=== PATIENT | female | born 2000 | race Two or more races ===

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

== ENCOUNTER 2020-03-02 15:34 | Emergency (ER) | payer OTHER ==
[2020-03-02 16:27] LABS: ABSOLUTE BASOPHILS # (AUTO) 0.1 10^3/uL (0.0-0.2); ABSOLUTE EOSINOPHILS # (AUTO) 0.6 10^3/uL (0.0-0.6); ABSOLUTE LYMPHOCYTES (AUTO) 1.9 10^3/uL (0.5-4.7); ABSOLUTE MONOCYTES (AUTO) 0.3 10^3/uL (0.1-1.4); ABSOLUTE NEUT (AUTO) 5.8 10^3/uL (1.7-8.2); BASOPHILS % (AUTO) 0.7 % (0-2); EOSINOPHILS % (AUTO) 6.8 % (0-6); HEMOGLOBIN 13.9 g/dL (12.0-15.5); LYMPHOCYTES % (AUTO) 21.9 % (13-45); MEAN CORPUSCULAR HEMOGLOBIN 30.2 pg (27.0-33.4); MEAN CORPUSCULAR HGB CONC 34.8 g/dL (32.0-36.0); MEAN CORPUSCULAR VOLUME 87 fl (80-97); PLATELET COUNT 183 10^3/uL (150-450); RED BLOOD COUNT 4.61 10^6/uL (3.72-5.28); RED CELL DISTRIBUTION WIDTH 12.7 % (11.5-14.0); SEGMENTED NEUTROPHILS % (AUTO) 66.6 % (42-78); TOTAL CELLS COUNTED % (AUTO) 100 %; WHITE BLOOD COUNT 8.7 10^3/uL (4.0-10.5)
[2020-03-02 16:51] LABS: ALBUMIN 4.2 g/dL (3.7-5.6); ALKALINE PHOSPHATASE 56 U/L (50-135); ANION GAP 8 (5-19); ASPARTATE AMINO TRANSFERASE 18 U/L (5-30); BILIRUBIN,TOTAL 0.4 mg/dL (0.2-1.3); BLOOD UREA NITROGEN 12 mg/dL (7-20); CALCIUM 9.4 mg/dL (8.4-10.2); CARBON DIOXIDE 24 mmol/L (22-30); CHLORIDE 104 mmol/L (98-107); GLUCOSE 87 mg/dL (75-110); POTASSIUM 4.2 mmol/L (3.6-5.0); TOTAL PROTEIN 6.8 g/dL (6.3-8.2)
--- NOTE | 2020-03-02 17:33 | ER Document Report ---
HPI - HPI Time Seen by Provider: 03/02/20 15:53 Pain Level: 0 Notes: Otherwise healthy 19-year-old female G1, P0 presenting to the emergency department with vaginal bleeding in the setting of early . Patient reports she has found she was last week. She states her last menstrual period was on 01/09/2020. She reports vaginal bleeding started earlier today, and she has soaked through 1 pad in about 5 hours. Denies passage of any clots or tissue. - REPRODUCTIVE Reproductive: REPORTS: : Past Medical History - General Information source: Patient - Social History Smoking Status: Never Smoker Chew tobacco use (# tins/day): No Frequency of alcohol use: None Drug Abuse: None Family History: Reviewed & Not Pertinent Patient has suicidal ideation: No Patient has homicidal ideation: No Pulmonary Medical History: Reports: Hx Asthma Vertical Provider Document - CONSTITUTIONAL Notes: PHYSICAL EXAMINATION: GENERAL: Well-appearing, well-nourished and in no acute distress. HEAD: Atraumatic, normocephalic. EYES: Pupils equal round and reactive to light, extraocular movements intact, conjunctiva are normal. ENT: Nares patent, oropharynx clear without exudates. Moist mucous membranes. NECK: Normal range of motion, supple without lymphadenopathy LUNGS: Breath sounds clear to auscultation bilaterally and equal. No wheezes rales or rhonchi. HEART: Regular rate and rhythm without murmurs ABDOMEN: Soft, nontender, nondistended abdomen. No guarding, no rebound. No masses appreciated. Female : deferred Musculoskeletal: Normal range of motion, no pitting or edema. No cyanosis. NEUROLOGICAL: Cranial nerves grossly intact. Normal speech, normal gait. Normal sensory, motor exams PSYCH: Normal mood, normal affect. SKIN: Warm, Dry, normal turgor, no rashes or lesions noted. - INFECTION CONTROL TRAVEL OUTSIDE OF THE [place] IN LAST 30 DAYS: No Course - Re-evaluation Re-evalutation: 03/02/20 20:59 Laboratory 03/02/20 03/02/20 03/02/20 16:20 16:20 16:20 WBC 8.7 RBC 4.61 Hgb 13.9 Hct 40.0 MCV 87 MCH 30.2 MCHC 34.8 RDW 12.7 Plt Count 183 Lymph % (Auto) 21.9 Ingham % (Auto) 4.0 Eos % (Auto) 6.8 H Baso % (Auto) 0.7 Absolute Neuts (auto) 5.8 Absolute Lymphs (auto) 1.9 Absolute Monos (auto) 0.3 Absolute Eos (auto) 0.6 Absolute Basos (auto) 0.1 Seg Neutrophils % 66.6 Sodium 135.5 L Potassium 4.2 Chloride 104 Carbon Dioxide 24 Anion Gap 8 BUN 12 Creatinine 0.49 L Est GFR ( Amer) > 60 Est GFR (MDRD) Non-Af > 60 Glucose 87 Calcium 9.4 Total Bilirubin 0.4 Direct Bilirubin 0.0 Neonat Total Bilirubin Not Reportable Neonat Direct Bilirubin Not Reportable Neonat Indirect Bili Not Reportable AST 18 ALT 24 Alkaline Phosphatase 56 Total Protein 6.8 Albumin 4.2 Serum HCG, Qual POSITIVE H Beta HCG, Quant Total Beta HCG Blood Type Rhogam Indicated 03/02/20 03/02/20 16:20 16:57 WBC RBC Hgb Hct MCV MCH MCHC RDW Plt Count Lymph % (Auto) Ingham % (Auto) Eos % (Auto) Baso % (Auto) Absolute Neuts (auto) Absolute Lymphs (auto) Absolute Monos (auto) Absolute Eos (auto) Absolute Basos (auto) Seg Neutrophils % Sodium Potassium Chloride Carbon Dioxide Anion Gap BUN Creatinine Est GFR ( Amer) Est GFR (MDRD) Non-Af Glucose Calcium Total Bilirubin Direct Bilirubin Neonat Total Bilirubin Neonat Direct Bilirubin Neonat Indirect Bili AST ALT Alkaline Phosphatase Total Protein Albumin Serum HCG, Qual Beta HCG, Quant 91133.00 H Total Beta HCG POSITIVE Blood Type A POSITIVE Rhogam Indicated RHOGAM NOT INDICATED Obstetrics Ultrasound 03/02/20 17:32 IMPRESSION: Single intrauterine gestational sac, as above described. By mean sac diameter, this measures 6 weeks and 2 days. A questionable pole is identified though no obvious heart tones are identified, possibly due to the small size of the pole. Recommend serial beta-hCG surveillance and follow-up pelvic ultrasound in 1 week to assess for heart tones. Suspect subchorionic hematoma measuring 1.2 x 0.8 x 1.3 cm in size. copyright 2010 [employer]- All Rights Reserved Patient instructed to return to the emergency department or follow-up with [facility] for repeat quantitative hCG levels as well as repeat ultrasound. Patient very tearful and upset with the possibility of miscarriage. Patient will be discharged home with her . - Vital Signs Vital signs: Temp Pulse Resp BP Pulse Ox 98.7 F 86 16 110/71 100 03/02/20 15:48 03/02/20 15:35 03/02/20 15:35 03/02/20 15:35 03/02/20 15:35 - Laboratory Result Diagrams: 03/02/20 16:20 03/02/20 16:20 Laboratory results interpreted by me: 03/02/20 03/02/20 03/02/20 16:20 16:20 16:20 Eos % (Auto) 6.8 H Sodium 135.5 L Creatinine 0.49 L Serum HCG, Qual POSITIVE H Beta HCG, Quant 03/02/20 16:20 Eos % (Auto) Sodium Creatinine Serum HCG, Qual Beta HCG, Quant 17883.00 H Discharge - Discharge Clinical Impression: Vaginal bleeding during Condition: Stable Disposition: HOME, SELF-CARE Additional Instructions: Threatened Miscarriage You have been evaluated for a possible miscarriage. At this time, there is no indication that a miscarriage will occur. Most women with your symptoms will go on to have a perfectly normal baby. However, careful observation will be necessary. A miscarriage occurs when the fetus is abnormal. There is no medicine or treatment for it. You should rest in bed until the symptoms have resolved. Do not douche or have sex for at least a week, or until OK'd by the doctor. Call the doctor or return for re-examination if there is an increase in bleeding or cramping, or passage of tissue. Your ultrasound today showed a sac in the uterus but did not show any obvious heart tones. This is possibly due to your very early or a could indicate miscarriage. It is very important to have your blood re-drawn and have a repeat ultrasound in 3 to 5 days. I have given you the phone number for [facility], call them to make an appointment. If you are unable to follow-up with them please return to the emergency department and we will be happy to repeat your ultrasound and lab work. Referrals: [facility] [Provider Group] - Follow up as needed
--- NOTE | 2020-03-02 20:26 | RADIOLOGY REPORT (SQ) ---
EXAM DESCRIPTION: US TRANSVAGINAL COMPLETED DATE/TME: 03/02/2020 17:32 CLINICAL HISTORY: 19 years, Female, vag bleed, + COMPARISON: None. TECHNIQUE: Axial 2-D grayscale images of the pelvis were acquired. Doppler was utilized. LIMITATIONS: None. FINDINGS: Uterus measures 8.1 x 3.6 x 7.2 cm in size. A suspected intrauterine gestational sac is identified measuring 1.36 cm in average diameter for an estimated gestational age of 6 weeks and 2 days. A yolk sac is identified measuring 0.22 cm in width. A questionable pole is identified (0.15 cm) though no obvious heart tones are clearly delineated. The cervix is closed, measuring 3.4 cm in length. An area of hypoechogenicity is noted about the inferior aspect of the gestational sac measuring 1.2 x 0.8 x 1.3 cm in size. Right ovary measures 5.4 x 4.3 x 3.6 cm in size. It contains an anechoic lesion measuring 2.3 x 2.5 x 2.5 cm in size, corresponding to a simple ovarian cyst. Otherwise, the right ovary demonstrates normal Doppler flow. Left ovary measures 2.1 x 1.3 x 2.6 cm in size. It also demonstrates Doppler flow. No significant free fluid is identified within the imaged pelvis. IMPRESSION: Single intrauterine gestational sac, as above described. By mean sac diameter, this measures 6 weeks and 2 days. A questionable pole is identified though no obvious heart tones are identified, possibly due to the small size of the pole. Recommend serial beta-hCG surveillance and follow-up pelvic ultrasound in 1 week to assess for heart tones. Suspect subchorionic hematoma measuring 1.2 x 0.8 x 1.3 cm in size. copyright 2010 [employer] All Rights Reserved
[2020-03-02 20:52] VITALS: BP 102/53
== END 2020-03-02 20:59 | disposition home or self-care (01) ==
LOC: ER 15:34
DX: O20.9 Hemorrhage in early pregnancy, unspecified (principal); O99.511 Diseases of the respiratory system complicating pregnancy, first trimester; J45.909 Unspecified asthma, uncomplicated; Z3A.01 Less than 8 weeks gestation of pregnancy
CPT/HCPCS: 36415; 76817; 80053; 84702; 84703; 85025; 86900; 86901; 99284

== ENCOUNTER 2020-03-05 09:48 | Emergency (ER) | payer OTHER ==
--- NOTE | 2020-03-05 10:37 | ER Document Report ---
Entered by SERA GIRALDO SCRIBE 03/05/20 1014 Acting as scribe for:EDLMA CARPENTER MD ED GI/ - General Chief Complaint: Vag Bleeding, +preg <12wks Stated Complaint: VAGINAL BLEEDING Time Seen by Provider: 03/05/20 10:09 Primary Care Provider: [facility] [Provider Group] - Follow up in 3-5 days MAGDIEL GAY PA-C [Primary Care Provider] - Follow up as needed Mode of Arrival: Ambulatory Information source: Patient Notes: This 19 year old female patient presents to the emergency department today for a repeat ultrasound and blood work as a follow up from her previous visit to this ED x3 days ago. Patients LMP was 01/09/2020 and she has been having vaginal bleeding and she was diagnosed with a subchorionic hematoma here on ultrasound x3 days ago. Patient states she hasn't had any more bleeding but she has noticed a small amount of brown discharge. Patient denies any cramping. On 03/02/2020, patient's ultrasound showed a 6-week 2-day gestational sac without pole and no heartbeat seen. There was a small subchorionic bleed. hCG level was 35,892. Today the ultrasound shows a 5-week 6-day intrauterine pre gnancy with a heart rate of 95. hCG level 64,180. TRAVEL OUTSIDE OF THE [place] IN LAST 30 DAYS: No - Related Data Allergies/Adverse Reactions: No Known Allergies Allergy (Unverified 08/13/19 21:37) Past Medical History - General Information source: Patient Last Menstrual Period: 01/09/2020 - Social History Smoking Status: Never Smoker Cigarette use (# per day): No Frequency of alcohol use: None Drug Abuse: None Lives with: Family Family History: Reviewed & Not Pertinent Pulmonary Medical History: Reports: Hx Asthma Surgical Hx: Negative Review of Systems - Review of Systems Constitutional: No symptoms reported EENT: No symptoms reported Cardiovascular: No symptoms reported Respiratory: No symptoms reported Gastrointestinal: No symptoms reported Genitourinary: No symptoms reported Female Genitourinary: See HPI, , Vaginal bleeding Musculoskeletal: No symptoms reported Skin: No symptoms reported Hematologic/Lymphatic: No symptoms reported Neurological/Psychological: No symptoms reported -: Yes All other systems reviewed and negative Physical Exam - Vital signs Vitals: Temp 98.1 F 03/05/20 09:54 Interpretation: Normal - General General appearance: Appears well, Alert - HEENT Head: Normocephalic, Atraumatic Eyes: Normal Pupils: PERRL - Respiratory Respiratory status: No respiratory distress Chest status: Nontender Breath sounds: Normal Chest palpation: Normal - Cardiovascular Rhythm: Regular Heart sounds: Normal auscultation Murmur: No - Abdominal Inspection: Normal Distension: No distension Bowel sounds: Normal Tenderness: Nontender Organomegaly: No organomegaly - Back Back: Normal, Nontender - Extremities General upper extremity: Normal inspection, Nontender, Normal ROM General lower extremity: Normal inspection, Nontender, Normal ROM - Neurological Neuro grossly intact: Yes Cognition: Normal Orientation: AAOx4 Whitefield Coma Scale Eye Opening: Spontaneous Henry Coma Scale Verbal: Oriented Henry Coma Scale Motor: Obeys Commands Henry Coma Scale Total: 15 Speech: Normal Motor strength normal: LUE, RUE, LLE, RLE Sensory: Normal - Psychological Associated symptoms: Normal affect, Normal mood - Skin Skin Temperature: Warm Skin Moisture: Dry Skin Color: Normal Course - Vital Signs Vital signs: Temp Pulse Resp BP Pulse Ox 98.7 F 82 16 107/68 96 03/05/20 12:02 03/05/20 12:02 03/05/20 12:02 03/05/20 12:02 03/05/20 12:02 - Laboratory Laboratory results interpreted by me: 03/05/20 10:05 Beta HCG, Quant 75358.00 H Discharge - Discharge Clinical Impression: Viable in first trimester Condition: Stable Disposition: HOME, SELF-CARE Additional Instructions: Your hormone level today has gone up to 64,180, your ultrasound shows a viable intrauterine measuring 5 weeks 6 days with a heart rate of 95. You should continue to drink plenty of fluids, pelvic rest, follow-up with [facility] next week for recheck. RETURN TO THE EMERGENCY ROOM IF ANY NEW OR WORSENING SYMPTOMS. Referrals: MAGDIEL GAY PA-C [Primary Care Provider] - Follow up as needed [facility] [Provider Group] - Follow up in 3-5 days I personally performed the services described in the documentation, reviewed and edited the documentation which was dictated to the scribe in my presence, and it accurately records my words and actions.
--- NOTE | 2020-03-05 11:36 | RADIOLOGY REPORT (SQ) ---
EXAM DESCRIPTION: U/S OB TRANSVAGINAL W/O DOP IMAGES COMPLETED DATE/TIME: 03/05/2020 11:16 am REASON FOR STUDY: 6wk vag bleed, F/U COMPARISON: None. TECHNIQUE: Transvaginal static and realtime grayscale images acquired of the pelvis. Additional tomy cted spectral and color Doppler images recorded. All images stored on PACs. bHCG: Pending. CLINICAL DATES: 8 weeks 0 days LIMITATIONS: None. FINDINGS: FETUS: Single Living intrauterine . ULTRASOUND EGA: 5 weeks 6 days ULTRASOUND MARIIA: 10/30/2020 EFW: Not applicable less than 20 weeks. CRL: 3 mm FHR: 95 beats per minute. SURVEY: No visualized anomalies. AMNIOTIC FLUID: Adequate amount. PLACENTA: Not yet developed due to early gestation. SUBCHORIONIC BLEED: No. SIZE OF BLEED: Not applicable. UTERUS: No masses. No anomalies. CERVICAL LENGTH: 3.3 cm. Closed. RIGHT ADNEXA: Normal ovary with normal vascular flow. No adnexal free fluid. Corpus Luteum measuring 3.0 cm. LEFT ADNEXA: Ovary not identified due to poor acoustical window. No adnexal free fluid. No adnexal masses. FREE FLUID: None. OTHER: No other significant finding. IMPRESSION: LIVING INTRAUTERINE . EGA 5 weeks 6 days. Trimester of : First trimester - 0 to 13 weeks. TECHNICAL DOCUMENTATION: JOB ID: [id number] 2010 [employer]- All Rights Reserved rev Reading location - IP/workstation name: [email or web address]
[2020-03-05 12:05] VITALS: BP 107/68
== END 2020-03-05 12:05 | disposition home or self-care (01) ==
LOC: ER 09:48
DX: O20.9 Hemorrhage in early pregnancy, unspecified (principal); Z3A.01 Less than 8 weeks gestation of pregnancy
CPT/HCPCS: 36415; 76817; 84702; 99284

== ENCOUNTER 2020-04-26 16:45 | Emergency (ER) | payer OTHER ==
[2020-04-26] MEDS ORDERED: MORPHINE SULFATE 10 MG/ML INJ IM ONE (16:54)
--- NOTE | 2020-04-26 16:57 | ER Document Report ---
ED Medical Screen (RME) - General Chief Complaint: Vaginal Bleeding Stated Complaint: POSSIBLE MISCARRIAGE Time Seen by Provider: 04/26/20 16:48 Primary Care Provider: MAGDIEL GAY PA-C [Primary Care Provider] - Follow up as needed Notes: Patient is a G1, P0-year-old female who presents emergency department for abdominal pain and cramping. Patient had a confirmed via ultrasound by her AUTOMOTIVE SALES REPRESENTATIVE. Patient's last menstrual cycle was 01/09/2020. Patient was given indomethacin, but has not taken it. She states that she feels like she is having contractions. She took Percocet prior to coming to the emergency department, but still continues to have cramping and pain. Exam: Appears she is having pain from contractions. I have greeted and performed a rapid initial assessment of this patient. A comprehensive ED assessment and evaluation of the patient, analysis of test results and completion of medical decision making process will be conducted by an additional ED providers. TRAVEL OUTSIDE OF THE [place] IN LAST 30 DAYS: No - Related Data Allergies/Adverse Reactions: No Known Allergies Allergy (Unverified 08/13/19 21:37) Home Medications: percocet. cytotec Past Medical History Pulmonary Medical History: Reports: Hx Asthma Physical Exam - Vital signs Vitals: Temp Pulse Resp BP Pulse Ox 97.5 F 92 20 101/59 L 97 04/26/20 16:50 04/26/20 16:50 04/26/20 16:50 04/26/20 16:50 04/26/20 16:50 Course - Vital Signs Vital signs: Temp Pulse Resp BP Pulse Ox 97.5 F 92 20 101/59 L 97 04/26/20 16:52 04/26/20 16:50 04/26/20 16:50 04/26/20 16:50 04/26/20 16:50 Doctor's Discharge - Discharge Referrals: MAGDIEL GAY PA-C [Primary Care Provider] - Follow up as needed
[2020-04-26 17:22] LABS: ABSOLUTE BASOPHILS # (AUTO) 0.1 10^3/uL (0.0-0.2); ABSOLUTE EOSINOPHILS # (AUTO) 0.5 10^3/uL (0.0-0.6); ABSOLUTE LYMPHOCYTES (AUTO) 2.7 10^3/uL (0.5-4.7); ABSOLUTE MONOCYTES (AUTO) 0.6 10^3/uL (0.1-1.4); ABSOLUTE NEUT (AUTO) 7.7 10^3/uL (1.7-8.2); EOSINOPHILS % (AUTO) 4.3 % (0-6); HEMATOCRIT 38.2 % (36.0-47.0); HEMOGLOBIN 13.2 g/dL (12.0-15.5); MEAN CORPUSCULAR HEMOGLOBIN 29.7 pg (27.0-33.4); MEAN CORPUSCULAR HGB CONC 34.5 g/dL (32.0-36.0); MEAN CORPUSCULAR VOLUME 86 fl (80-97); MONOCYTES % (AUTO) 5.2 % (3-13); PLATELET COUNT 168 10^3/uL (150-450); RED BLOOD COUNT 4.45 10^6/uL (3.72-5.28); RED CELL DISTRIBUTION WIDTH 12.9 % (11.5-14.0); SEGMENTED NEUTROPHILS % (AUTO) 66.5 % (42-78); TOTAL CELLS COUNTED % (AUTO) 100 %; WHITE BLOOD COUNT 11.7 10^3/uL (4.0-10.5)
[2020-04-26] MEDS ORDERED: ONDANSETRON 4 MG TAB.RAPDIS PO ONE (18:00)
--- NOTE | 2020-04-26 22:11 | ER Document Report ---
ED General - General Chief Complaint: Vaginal Bleeding Stated Complaint: POSSIBLE MISCARRIAGE Time Seen by Provider: 04/26/20 16:48 Primary Care Provider: MAGDIEL GAY PA-C [Primary Care Provider] - Follow up as needed Notes: 20-year-old female who is a G1, P0 approximately 12 weeks by gestation presents the emergency department actively miscarrying. Patient started having some vaginal bleeding last night, saw [facility] today where they confirmed that the heartbeat had stopped. Patient was given Cytotec which she was told to start taking this evening however before she could start taking it her bleeding got heavier, her pain increased and then she passed what she thinks may have been the fetus in the waiting room of the emergency department. Patient now states that her bleeding has slowed down significantly, states that she is no longer having any significant pain. Would like to take the tissue at home to bury at home. Patient is A+. TRAVEL OUTSIDE OF THE [place] IN LAST 30 DAYS: No - Related Data Allergies/Adverse Reactions: No Known Allergies Allergy (Unverified 08/13/19 21:37) Home Medications: percocet. cytotec Past Medical History - General Information source: Patient - Social History Smoking Status: Never Smoker Family History: Reviewed & Not Pertinent Patient has homicidal ideation: No Pulmonary Medical History: Reports: Hx Asthma Review of Systems - Review of Systems Constitutional: No symptoms reported Female Genitourinary: See HPI -: Yes All other systems reviewed and negative Physical Exam - Vital signs Vitals: Temp Pulse Resp BP Pulse Ox 97.5 F 92 20 101/59 L 97 04/26/20 16:50 04/26/20 16:50 04/26/20 16:50 04/26/20 16:50 04/26/20 16:50 Interpretation: Normal - Notes Notes: GENERAL: Alert, interacts well. No acute distress. HEAD: Normocephalic, atraumatic EYES: Pupils equal, round and reactive to light, extraocular movements intact. ENT: Oral mucosa moist, tongue midline. NECK: Full range of motion, supple, trachea midline. LUNGS: Clear to auscultation bilaterally, no wheezes, rales or rhonchi, no respiratory distress. HEART: Regular rate and rhythm, no murmurs, gallops, rubs. ABDOMEN: Soft, nontender, nondistended, bowel sounds present in all 4 quadrants. EXTREMITIES: Moves all 4 extremities spontaneously, no edema, radial and dorsalis pedis pulses 2/4 bilaterally. No cyanosis. NEUROLOGICAL: Alert and oriented x3, normal speech. PSYCH: Normal mood, normal affect. SKIN: Warm, Dry, normal turgor, no rashes or lesions noted. Course - Re-evaluation Re-evalutation: 04/26/20 22:19 CBC shows mild leukocytosis, no anemia, her quant is still detectable at 1026.4. She has had old blood typing which shows that she has a positive. Patient has passed what appears to be all of the products of conception in a bag at the bedside. Patient would like to take him home, discussed case with Dr. Lindsey the SPOOL MAKER on-call, agrees that as this is her first miscarriage there is no real benefit to sending it for genetic testing. Patient will be allowed to take the products of conception home. No need for Cytotec at this time as she has already passed everything. Patient was given strict return precautions and will be discharged home. - Vital Signs Vital signs: Temp Pulse Resp BP Pulse Ox 97.5 F 92 20 101/59 L 97 04/26/20 16:52 04/26/20 16:50 04/26/20 16:50 04/26/20 16:50 04/26/20 16:50 - Laboratory Result Diagrams: 04/26/20 17:15 Laboratory results interpreted by me: 04/26/20 04/26/20 17:15 17:15 WBC 11.7 H Beta HCG, Quant 1026.40 H Discharge - Discharge Clinical Impression: First trimester , Spontaneous Condition: Stable Disposition: HOME, SELF-CARE Additional Instructions: Miscarriage You have had a miscarriage (medically called a "spontaneous "). The miscarriage occurred because the fetus did not develop normally. There is nothing you did to cause it, and nothing you could have done to prevent it. About one in four ends in miscarriage. You should rest in bed for two or three days. As there is some risk of infection of the uterus, you should not have intercourse for one week (or until okayed by your physician). You might not have a period for six to eight weeks. You should not become again for at least three months -- the uterus requires time to get back to normal. Call the doctor or return for re-examination if there is heavy or persistent vaginal bleeding, fever, foul discharge, continued cramping pains, or abdominal pain. If you bleed through more than 2 pads per hour for more than 2 hours in a row please return to the emergency department. If you develop fever, foul-smelling vaginal discharge or lightheadedness please return to the emergency department. After discussion with Dr. Lindsey, the SPOOL MAKER on-call, you do not need to start the Cytotec. There is no need to send the fetus for genetic testing at this time. Please keep your follow-up appointment with [facility] next week. Referrals: MAGDIEL GAY PA-C [Primary Care Provider] - Follow up as needed YUE LINDSEY MD [ACTIVE PROVISIONAL STAFF] - Follow up as needed
[2020-04-26 23:04] VITALS: BP 97/56
== END 2020-04-26 23:04 | disposition home or self-care (01) ==
LOC: ER 16:45
DX: O03.9 Complete or unspecified spontaneous abortion without complication (principal); J45.909 Unspecified asthma, uncomplicated; D72.829 Elevated white blood cell count, unspecified; Z79.891 Long term (current) use of opiate analgesic
CPT/HCPCS: 99284; 96372; 36415; 84702; 85025; S0119; J2270

== ENCOUNTER 2020-05-01 01:32 | Emergency (ER) | payer OTHER ==
[2020-05-01 02:06] LABS: APPEARANCE,URINE CLEAR; BILIRUBIN,URINE NEGATIVE (NEGATIVE); COLOR,URINE COLORLESS; GLUCOSE, URINE NEGATIVE (NEGATIVE); KETONES,URINE NEGATIVE (NEGATIVE); LEUKOCYTE ESTERASE,URINE NEGATIVE (NEGATIVE); NITRITE,URINE NEGATIVE (NEGATIVE); PROTEIN,URINE NEGATIVE (NEGATIVE); URINE SPECIFIC GRAVITY 1.001; UROBILINOGEN,URINE NEGATIVE mg/dL (<2.0)
[2020-05-01] MEDS ORDERED: NICOTINE 7 MG/24 HR PATCH.TD24 TD ONE (02:10)
[2020-05-01] MEDS ORDERED: PROMETHAZINE HCL INJ 25 MG/1 ML VIAL IM ONE (02:10)
--- NOTE | 2020-05-01 02:16 | ER Document Report ---
ED Psych Disorder / Suicide - General Chief Complaint: Psych Problem Stated Complaint: PSYCH/SELF HARM Time Seen by Provider: 05/01/20 02:09 Primary Care Provider: MAGDIEL GAY PA-C [Primary Care Provider] - Follow up as needed Notes: Patient is a 20-year-old female that comes to the emergency department for chief complaint of alcohol intoxication and suicidal statements. Patient states she just recently had a first trimester miscarriage, she became intoxicated, she states she was prescribed Percocet for pain and she told her significant other that she was feeling like killing herself and was "thinking about taking the rest of the bottle of Percocets". Patient denies history of suicide attempts, psychiatric medications. Patient was brought to the emergency department by her significant other. Patient smokes, denies recreational drugs, denies any sick symptoms including fever, vomiting, abdominal pain, flank pain, heavy vaginal bleeding. TRAVEL OUTSIDE OF THE [place] IN LAST 30 DAYS: No - Related Data Allergies/Adverse Reactions: No Known Allergies Allergy (Unverified 08/13/19 21:37) Past Medical History - General Information source: Patient - Social History Smoking Status: Never Smoker Chew tobacco use (# tins/day): No Frequency of alcohol use: Occasional Drug Abuse: None Lives with: Spouse/Significant other Family History: Reviewed & Not Pertinent Pulmonary Medical History: Reports: Hx Asthma - Immunizations Immunizations up to date: Yes Hx Diphtheria, Pertussis, Tetanus Vaccination: Yes Review of Systems - Review of Systems Constitutional: No symptoms reported EENT: No symptoms reported Cardiovascular: No symptoms reported Respiratory: No symptoms reported Gastrointestinal: No symptoms reported Genitourinary: No symptoms reported Female Genitourinary: See HPI Musculoskeletal: No symptoms reported Skin: No symptoms reported Hematologic/Lymphatic: No symptoms reported Neurological/Psychological: See HPI Physical Exam - Vital signs Vitals: Temp 99 F 05/01/20 02:00 - Notes Notes: GENERAL: Patient slightly unsteady on her feet, slur some words, appears mildly intoxicated. She does not appear to be in distress. HEAD: Normocephalic, atraumatic. EYES: Pupils equal, round, and reactive to light. Extraocular movements intact. ENT: Oral mucosa moist, tongue midline. Oropharynx unremarkable. Airway patent. LUNGS: Clear to auscultation bilaterally, no wheezes, rales, or rhonchi. No respiratory distress. Non-tender chest wall. HEART: Regular rate and rhythm. No murmur ABDOMEN: Soft, non-tender. Non-distended. EXTREMITIES: Moves all 4 extremities spontaneously. No edema, normal radial and dorsalis pedis pulses bilaterally. No cyanosis. BACK: no cervical, thoracic, lumbar midline tenderness. No saddle anesthesia, normal distal neurovascular exam. Moves all extremities in full range of motion. NEUROLOGICAL: Alert and oriented x3. Occasionally slurred speech. Cranial nerves II through XII grossly intact. Strength 5/5 in all extremities. PSYCH: Patient cooperative but intermittently tearful and anxious occasionally slurred speech. SKIN: Warm, dry, normal turgor. No rashes or lesions noted. Course - Re-evaluation Re-evalutation: Patient intermittently tearful but cooperative. Patient appears somewhat intoxicated. Patient is reporting suicidal ideations with a plan, citing grief as her reason. Because of her suicidal ideations with a plan patient was placed on IVC paperwork, this was signed by Dr. Pandya. Physical exam is unremarkable, patient is mildly tachycardic. Patient is asking for nicotine patch and something to help her calm down and sleep, she was given Phenergan which I feel will combine well with her alcohol. 05/01/20 03:15 I spoke with Damon on the phone. He states he was with patient sapna when she stated that she wanted to and he states that the pills were actually removed from the patient including Percocet and acetaminophen so patient cannot take them although she did appear to be planning to take them and verbalized that she was going to take them. He states she is never attempted suicide with him in the past although she occasionally will become emotional and state suicidal ideation. He states that she has a previous history of cutting and suicidal ideations before she has been with him as far as he knows but she has never been treated or hospitalized in a psychiatric facility. He states that he feels that she is mainly having an emotional grief response but he does want her evaluated. states appreciation for her care and requests to be contacted when she has been evaluated with a treatment plan so he can assist. CBC does not show concerning drop in hemoglobin, nonspecific. Chemistry shows slightly low bicarbonate most likely from the alcohol, otherwise unremarkable. hCG is very significantly lower consistent with completed miscarriage. Patient with no abdominal pain, fever, pelvic pain suggesting retained products or infection. Urinalysis unremarkable. Alcohol is only 97. Drug screen unremarkable. On reevaluation patient is not tachycardic, blood pressure unremarkable, patient is medically cleared pending mental health evaluation. - Vital Signs Vital signs: Temp Pulse Resp BP Pulse Ox 99 F 18 104/58 L 97 05/01/20 02:00 05/01/20 05:01 05/01/20 05:00 05/01/20 05:01 - Laboratory Result Diagrams: 05/01/20 02:26 05/01/20 02:26 Laboratory results interpreted by me: 05/01/20 05/01/20 05/01/20 00:26 01:42 02:26 WBC 12.0 H Lymph % (Auto) 12.1 L Pickett % (Auto) 1.7 L Absolute Neuts (auto) 10.2 H Seg Neutrophils % 85.6 H Chloride Carbon Dioxide Serum HCG, Qual Beta HCG, Quant 71.95 H Urine Blood SMALL H Salicylates Acetaminophen 05/01/20 05/01/20 02:26 02:26 WBC Lymph % (Auto) Pickett % (Auto) Absolute Neuts (auto) Seg Neutrophils % Chloride 111 H Carbon Dioxide 18 L Serum HCG, Qual POSITIVE H Beta HCG, Quant Urine Blood Salicylates < 1.0 L Acetaminophen < 10 L Discharge - Discharge Clinical Impression: Grief at loss of child, Suicidal ideations Alcohol intoxication Qualifiers: Complication of substance-induced condition: with unspecified complication Qualified Code(s): F10.929 - Alcohol use, unspecified with intoxication, unspecified Condition: Stable Disposition: PSYCH HOSP/UNIT Referrals: MAGDIEL GAY PA-C [Primary Care Provider] - Follow up as needed
[2020-05-01 02:22] LABS: URINE AMPHETAMINES SCREEN NEGATIVE; URINE BARBITURATES SCREEN NEGATIVE; URINE BENZODIAZEPINES SCREEN NEGATIVE; URINE COCAINE SCREEN NEGATIVE; URINE MARIJUANA (THC) SCREEN NEGATIVE; URINE METHADONE SCREEN NEGATIVE; URINE PHENCYCLIDINE SCREEN NEGATIVE
[2020-05-01] MEDS ORDERED: NICOTINE 7 MG/24 HR PATCH.TD24 ONE (02:35)
[2020-05-01 02:43] LABS: ABSOLUTE BASOPHILS # (AUTO) 0.1 10^3/uL (0.0-0.2); ABSOLUTE LYMPHOCYTES (AUTO) 1.5 10^3/uL (0.5-4.7); ABSOLUTE MONOCYTES (AUTO) 0.2 10^3/uL (0.1-1.4); ABSOLUTE NEUT (AUTO) 10.2 10^3/uL (1.7-8.2); BASOPHILS % (AUTO) 0.5 % (0-2); EOSINOPHILS % (AUTO) 0.1 % (0-6); HEMATOCRIT 38.6 % (36.0-47.0); HEMOGLOBIN 13.3 g/dL (12.0-15.5); LYMPHOCYTES % (AUTO) 12.1 % (13-45); MEAN CORPUSCULAR HEMOGLOBIN 29.8 pg (27.0-33.4); MEAN CORPUSCULAR HGB CONC 34.5 g/dL (32.0-36.0); MEAN CORPUSCULAR VOLUME 86 fl (80-97); MONOCYTES % (AUTO) 1.7 % (3-13); PLATELET COUNT 209 10^3/uL (150-450); RED BLOOD COUNT 4.46 10^6/uL (3.72-5.28); RED CELL DISTRIBUTION WIDTH 12.7 % (11.5-14.0); SEGMENTED NEUTROPHILS % (AUTO) 85.6 % (42-78); TOTAL CELLS COUNTED % (AUTO) 100 %
[2020-05-01 03:05] LABS: ALBUMIN 4.4 g/dL (3.5-5.0); ALCOHOL 98 mg/dL (NONE DETECTED); ALKALINE PHOSPHATASE 60 U/L (38-126); ANION GAP 11 (5-19); ASPARTATE AMINO TRANSFERASE 19 U/L (14-36); BILIRUBIN,TOTAL 0.2 mg/dL (0.2-1.3); BLOOD UREA NITROGEN 11 mg/dL (7-20); CALCIUM 9.9 mg/dL (8.4-10.2); CARBON DIOXIDE 18 mmol/L (22-30); CHLORIDE 111 mmol/L (98-107); GLUCOSE 100 mg/dL (75-110); POTASSIUM 4.3 mmol/L (3.6-5.0); TOTAL PROTEIN 7.1 g/dL (6.3-8.2)
[2020-05-01 03:07] LABS: ACETAMINOPHEN < 10 ug/mL (10-30); SALICYLATE < 1.0 mg/dL (2.0-20.0)
--- NOTE | 2020-05-01 06:06 | EKG REPORT ---
SEVERITY:- OTHERWISE NORMAL ECG - SINUS TACHYCARDIA : Confirmed by: Sebas Bell MD 01-May-2020 06:05:52
[2020-05-01] MEDS ORDERED: NICOTINE 21 MG/24 HR PATCH.TD24 TD ONE (16:48)
--- NOTE | 2020-05-01 17:43 | PSYCHOLOGICAL NOTE ---
Psych Note - Psych Note Date seen by psych provider: 05/01/20 Time seen by psych provider: 11:45 Psych Note: Patient has consent from the behavioral health team to have a baby's knit cap in her possession Reason for Consult: Suicidal ideation Consent permissions: Patient's , Damon and patient's [id number], Cheryl Patient arrived to [facility] ED via POV with concerns for suicidal ideation. Patient reports she was drinking last night and told her and best friend/[id number] that she wanted to . She reports she was upset because she saw her with another woman. She disclosed she is unsure what to think and that he might have been drunk also; "he took down pictures and my toothbrush...she thought he was ....Then he said for me to tell her we are because he wanted to hook puller with her later." She continued to state "it was just too much an once." She states he had a miscarriage on Friday04/26/2020. She identifies her [id number] as her best friend is currently visiting from [place] and she was having a "girls day" while her was supposed to be having a "guys day." She discloses that in high school she engaged in maladaptive coping of cutting and had passive suicidal ideation i.e. no plans means or intent. She confirms she went through to counseling during that timeframe and "got better." Patient states that she is currently not seeing outpatient mental health provider, denies having mental health diagnosis or taking any medications. Patient's last counseling session was when she was either a mariya or senior in high school in 2016. Clinician spoke with patient's who reports that he was spending the day with his friend when the patient became very upset. He reports that they ended up arguing and she made suicidal comments. He reports patient "ran down stairs;" he followed and found the patient had taken out jumped pills out on the counter" in front of her. She disclosed that she was not drinking during the time, she started drinking after they took the medication from her. He reports that she started to "slam" alcohol and "kept saying that she wanted to ." He denies the patient has ever attempted suicide to his knowledge in the past however has made suicidal comments prior. He reports that he has noticed a significant change in the patient since her miscarriage on Friday where she will become very sad and withdrawn. When asked about pictures of the wall the patient's reports that the picture "fell off the wall... I just have not had a chance to replace it." Clinician spoke with qkudkn-op-fne/best friend, Cheryl. She confirms the patient was not drinking when she started making comments that she wanted to and had taken out the medication from the cabinet. She reports that she was able to talk the patient down and took the medication from her. She reports that that is when the patient started drinking. She disclosed the patient attempted to retrieve the medication on multiple times while she was drinking alcohol. She disclosed when they attempted to take the alcohol from her she became aggressive and would not allow them to. She reports concern that the patient has been having difficulty since her miscarriage. She confirms the patient and her were arguing however states that she left the home while they were arguing to not be involved. She disclosed that upon arriving to the hospital she was in the bathroom assisting the patient for a urine sample because of her intoxication level. The patient had requested to give her a moment which she reports she was going to provide when the patient hit her head "extremely hard" against the wall on purpose. Patient alert and orientated to person, place, time and circumstance. Mood is dysphoric with tearful affect. Patient made suicidal comments with plan to overdose on her Percocet and acetaminophen. She denies homicidal ideation. Delusions are absent behaviors congruent with intact reality based presentation i.e. organized and linear thought process. Eye contact is poor. Conversational speech is within normal rate, tone and prosody. Intellectual abilities appear to be within the average range. Attention and concentration are currently good. Insight, judgment, impulse control is fair to poor. Patient is well-groomed. Clinical presentation: Guarded Dysphoric with tearful affect 2 traumas in less than 1 week (ie miscarriage and infidelity) Support network currently in crisis Impression\\plan: Patient is recommended for IVC. Patient just miscarried 5 days ago and then yesterday walked in on her with another woman. Patient does not currently have a stable support network. She has maladaptive coping skills and is currently not in outpatient mental health treatment. Patient reported suicidal ideation with a plan to overdose on her Percocet and acetaminophen. There is conflicting information in regards to when the patient made these comments i.e. patient reports that she was intoxicated at the time however both the patient's and best friend report the patient did not start drinking alcohol until they took the pills from her. Patient is currently in acute crisis and would benefit from medication stabilization to assist during these situational events. Patient will then need outpatient mental health services to build her positive coping skills once stabilized. Dr. Cummings was consulted in the care management of this patient; tending physicians in agreement with recommendations and disposition. 2048 Patient has been accepted to [place]; transportation will be requested
[2020-05-01 23:53] VITALS: BP 118/78
== END 2020-05-01 21:45 ==
LOC: ER 01:32
DX: F43.21 Adjustment disorder with depressed mood (principal); F10.129 Alcohol abuse with intoxication, unspecified; Y90.4 Blood alcohol level of 80-99 mg/100 ml; R45.851 Suicidal ideations; R00.0 Tachycardia, unspecified; J45.909 Unspecified asthma, uncomplicated; R52 Pain, unspecified; Z63.4 Disappearance and death of family member; Z63.0 Problems in relationship with spouse or partner; Z91.5 Personal history of self-harm
CPT/HCPCS: 93005; 99285; 96372; 36415; 80307 ×4; 84702; 84703; 85025; 80053; 81001; 93010; J2550; J3490

== ENCOUNTER 2020-12-02 04:36 | Emergency (ER) | payer OTHER ==
[2020-12-02] MEDS ORDERED: IPRATROPIUM/ALBUTEROL 0.5-2.5 MG/3 ML AMPUL NEB ONE ×2 (04:47→04:50)
[2020-12-02] MEDS ORDERED: PREDNISONE 20 MG TABLET PO ONE (04:50)
[2020-12-02] MEDS: ALBUTEROL SULFATE 0.083% NEB 2.5 MG/3 ML AMPUL NEB SCH ×2 (04:56→05:17)
[2020-12-02] MEDS ORDERED: ALBUTEROL SULFATE 0.083% NEB 2.5 MG/3 ML AMPUL NEB ONE (05:08)
--- NOTE | 2020-12-02 05:16 | ER Document Report ---
Entered by SERA GIRALDO SCRIBE 12/02/20 0511 Acting as scribe for:MICHAELA FAN IV, MD ED Respiratory Problem - General Chief Complaint: Asthma Exacerbation Stated Complaint: ASTHMA ATTACK Primary Care Provider: MAGDIEL GAY PA-C [Primary Care Provider] - Follow up as needed Mode of Arrival: Ambulatory Information source: Patient Notes: This 20-year-old female patient with a history of asthma presents to the emergency department today with complaints of wheezing and shortness of breath. Patient reports that 2 days ago she started developing a cold and it has now "settled in her chest". Patient states she has tried nebulizers at home and her Qvar with minimal relief. Patient reports that she has never been on prednisone although external pharmacy records indicate she filled prescription for prednisone yesterday. TRAVEL OUTSIDE OF THE [place] IN LAST 30 DAYS: No - Related Data Allergies/Adverse Reactions: No Known Allergies Allergy (Unverified 08/13/19 21:37) Past Medical History - General Information source: Patient - Social History Smoking Status: Current Every Day Smoker Cigarette use (# per day): Yes Drug Abuse: Marijuana Lives with: Family Family History: Reviewed & Not Pertinent Patient has homicidal ideation: No Pulmonary Medical History: Reports: Hx Asthma Surgical Hx: Negative - Immunizations Immunizations up to date: Yes Hx Diphtheria, Pertussis, Tetanus Vaccination: Yes Review of Systems - Review of Systems Constitutional: No symptoms reported EENT: No symptoms reported Cardiovascular: No symptoms reported Respiratory: See HPI, Short of breath, Wheezing Gastrointestinal: No symptoms reported Genitourinary: No symptoms reported Female Genitourinary: No symptoms reported Musculoskeletal: No symptoms reported Skin: No symptoms reported Hematologic/Lymphatic: No symptoms reported Neurological/Psychological: No symptoms reported -: Yes All other systems reviewed and negative Physical Exam - Vital signs Vitals: Temp 98.3 F 12/02/20 04:42 - Notes Notes: Physical Exam: General: Alert, appears somewhat short of breath. HEENT: Normocephalic. Atraumatic. PERRL. Extraocular movements intact. Oropharynx clear. Neck: Supple. Non-tender. Respiratory: Mild respiratory distress. Tight inspiratory and expiratory wheezing bilaterally. Cardiovascular: Tachycardic, regular rhythm. Abdominal: Normal Inspection. Non-tender. No distension. Normal Bowel Sounds. Back: No gross abnormalities. Extremities: Moves all four extremities. Upper extremities: Normal inspection. Normal ROM. Lower extremities: Normal inspection. No edema. Normal ROM. Neurological: Normal cognition. AAOx4. Normal speech. Psychological: Normal affect. Normal Mood. Skin: Warm. Dry. Normal color. Course - Re-evaluation Re-evalutation: 12/02/20 06:02 Differential diagnosis: Asthma exacerbation, URI, viral syndrome, pneumonia MDM: Patient has a normal-appearing chest x-ray and has improved markedly with [id number] albuterol treatments. I believe her symptoms are most consistent with a diagnosis of acute asthma exacerbation. Diagnosis, discharge instructions and discharge medication discussed with patient. 12/02/20 06:14 Patient states she is feeling much better after the [id number] albuterol treatments. Discharge prescription and emergency signs and symptoms discussed with patient. All questions were answered prior to discharge. - Vital Signs Vital signs: Temp Pulse Resp BP Pulse Ox 98.3 F 120 H 20 110/62 96 12/02/20 04:43 12/02/20 04:43 12/02/20 04:43 12/02/20 04:43 12/02/20 04:43 - Laboratory Results Critical Laboratory Results Reviewed: No Critical Results - Radiology Results Critical Radiology Results Reviewed: No Critical Results Discharge - Discharge Clinical Impression: Asthma exacerbation Qualifiers: Asthma severity: unspecified severity Asthma persistence: unspecified Qualified Code(s): J45.901 - Unspecified asthma with (acute) exacerbation Condition: Stable Disposition: HOME, SELF-CARE Additional Instructions: Return to the Emergency Department without delay if any worse. HOME CARE INSTRUCTIONS & INFORMATION: Thank you for choosing us for your medical needs. We hope you're satisfied with the care you received. After you leave, you must properly care for your problem and, at the same time, observe its progress. Any condition can change. Some illnesses can change rapidly over hours or days. If your condition worsens, return to the Emergency Department or see your physician promptly. ABOUT YOUR X-RAYS AND EKG'S: If you had an EKG or X-rays taken, they have been read by the Emergency Physician. The X-rays and EKG's will also be read by a Radiologist or Super[employer] within 24 hours. If discrepancies are noted, you will be notified by telephone. Please be certain the ED has a correct telephone number & address where you can be reached. Also, realize that some fractures or abnormalities do not show up on initial X-rays. If your symptoms continue, see your physician. ABOUT YOUR LABORATORY TEST: If you had laboratory tests, the results have been reviewed by the Emergency Physician. Some test results (for example cultures) may not be available for several days. You will be contacted if any test result shows you need additional treatment. Please be certain the ED has a correct telephone number and address where you can be reached. ABOUT YOUR MEDICATIONS: You will receive instructions on how to take your medicine on the prescription label you receive. Additional information may be provided by the Pharmacy. If you have questions afterwards, call the ED for clarification or further instructions. Some prescribed medications may cause drowsiness. Do not perform tasks such as driving a car or operating machinery without consulting your Pharmacist. If you feel you need a refill of pain medication, your condition will need re-evaluation. Please do not call for a refill of any medication. ABOUT YOUR SIGNATURE: Signature of this document acknowledges to followin. Understanding that you received emergency treatment and that you may be released before al medical problems are known or treated. Please be certain the ED has a correct phone number & address where you can be reached. 2. Acknowledgement that you will arrange for follow-up care as recommended. 3. Authorization for the Emergency Physician to provide information to your follow-up Physician in order to maximize your care. AT ANY TIME, IF YOUR SYMPTOMS CHANGE SIGNIFICANTLY OR WORSEN OR YOU DEVELOP NEW SYMPTOMS, RETURN TO THE EMERGENCY DEPARTMENT IMMEDIATELY FOR RE-EVALUATION. OUR GOAL IS TO PROVIDE EXCELLENT MEDICAL CARE! WE HOPE THAT WE HAVE MET YOUR EXPECTATIONS DURING YOUR EMERGENCY DEPARTMENT VISIT AND THAT YOU FEEL YOU HAVE RECEIVED EXCELLENT CARE! Prescriptions: Prednisone 50 mg PO QHS 4 Days #20 tablet Referrals: MAGDIEL GAY PA-C [Primary Care Provider] - Follow up as needed I personally performed the services described in the documentation, reviewed and edited the documentation which was dictated to the scribe in my presence, and it accurately records my words and actions.
--- NOTE | 2020-12-02 05:50 | RADIOLOGY REPORT (SQ) ---
CLINICAL HISTORY: hx asthma, wheezing COMPARISON: None. TECHNIQUE: XR CHEST 1 VIEW 12/02/2020 4:50 AM [employer] FINDINGS: Cardiac silhouette is normal in size. Lungs are clear without consolidation, atelectasis, mass or edema. There is no pleural effusion. There is no pneumothorax. There are no acute osseous findings. IMPRESSION: Clear lungs.
[2020-12-02] MEDS ORDERED: ALBUTEROL SULFATE HFA (90 MCG/PUFF) 8 GM MDI (1 MDI/ER DISP) IH PRN (06:25)
[2020-12-02 06:29] VITALS: BP 118/89
== END 2020-12-02 06:32 | disposition home or self-care (01) ==
LOC: ER 04:36
DX: J45.901 Unspecified asthma with (acute) exacerbation (principal); R06.02 Shortness of breath; Z79.899 Other long term (current) drug therapy; F17.210 Nicotine dependence, cigarettes, uncomplicated
CPT/HCPCS: 94640 ×2; 99285; 71045; J7512; J7613; J3490